=== PATIENT | female | born 1945 | race Caucasian/White ===

== ENCOUNTER 2018-11-14 08:58 | Day surgery (SDC) | payer MEDICARE, BC ==
[~2018-11-14 08:58] MED LIST: CEFAZOLIN 1 Gram 1 GM/50 ML BAG IVPB ONE; CEFAZOLIN 2 Gram 2 GM/50 ML BAG IVPB ONE
[2018-11-14] MEDS ORDERED: *PACU ONLY* KETAMINE HCL 10 MG/ML (20ML) VIAL IV ONE (08:59)
[2018-11-14] MEDS ORDERED: MORPHINE SULFATE 10MG/1ML **1ML VIAL IVP ONE (08:59)
[2018-11-14] MEDS ORDERED: METHYLPREDNISOLONE 40MG/VIAL IU ONE (08:59)
[2018-11-14] MEDS ORDERED: PROPOFOL 10 MG/ML VIAL IV ONE (08:59)
[2018-11-14] MEDS ORDERED: DEXAMETHASONE 4 MG/ML 1ML VIAL IVP ONE (08:59)
[2018-11-14] MEDS ORDERED: BUPIVACAINE 0.5% (5MG/ML) PF 30ML VIAL IVP ONE (08:59)
[2018-11-14] MEDS ORDERED: BUPIVACAINE LIPOSOME/PF 133MG/10ML VIAL IV ONE (08:59)
[2018-11-14] MEDS ORDERED: MIDAZOLAM HCL 2MG/2ML VIAL IV ONE (08:59)
[2018-11-14] MEDS ORDERED: HYDRALAZINE 20MG/ML VIAL IV ONE (08:59)
[2018-11-14] MEDS ORDERED: KETOROLAC 30 MG/ML VIAL IVP ONE (08:59)
[2018-11-14] MEDS ORDERED: GLYCOPYRROLATE 0.2 MG/ML ML IV ONE (08:59)
[2018-11-14] MEDS ORDERED: RINGERS SOLUTION,LACTATED 1,000 ML IV ONE ×2 (09:45→12:40)
[2018-11-14] MEDS ORDERED: BUPIVACAINE 0.5% W/EPI MPF 30 ML VIAL SQ ONE (11:47)
[2018-11-14] MEDS ORDERED: HYDRALAZINE 20MG/ML VIAL IV PRN ×2 (14:20→14:30)
--- NOTE | 2018-11-16 08:20 | Operative Note ---
DATE OF SURGERY: 11/14/2018 PREOPERATIVE DIAGNOSIS: Tear of the rotator cuff on the right. POSTOPERATIVE DIAGNOSES: 1. Massive tear of the rotator cuff on the right, chronic. 2. Complex glenohumeral labral tear from the 6 to 3-o'clock position. 3. Profound external impingement right shoulder. 4. Advanced arthrosis right distal clavicle. OPERATION: 1. Partial open repair of a chronically torn right rotator cuff tendon. 2. Right shoulder arthroscopy with interarticular debridement. 3. Right shoulder open acromioplasty, CA ligament resection, subacromial bursectomy. 4. Right shoulder distal clavicle resection. STAFF SURGEON: Socrates Sanchez MD ANESTHESIA: Interscalene block with sedation. PREPARATION: Chloraprep. INDIVIDUAL CONSIDERATIONS: None. CLINICAL DATA ASSISTANT: Mrs. Bree Mitchell PROCEDURE: The patient was taken to the operating room and had a successful induction of an interscalene block. She was then prepped and draped in the usual fashion after given IV sedation. Her examination under anesthesia showed no instability. The patient had a posterior portal identified for arthroscopy. Skin was again infiltrated with 0.5% Marcaine with epinephrine prior. An 18-gauge spinal needle was easily placed in the joint, and the joint was inflated with normal saline with a 60-mL syringe. A stab wound was made, and a blunt-tipped trocar for the scope was easily placed in the joint. The joint was inflated with normal saline. An anterior accessory portal was then made just inferior to the intact long head of the biceps tendon in a retrograde fashion with a Wissinger johnathan, and the joint was irrigated out. There was a partial tear of the long head, I would say about 1/3 of it was torn and frayed. The labrum from 6 to 3-o'clock was completely frayed, and this was debrided out with a shaver. Glenohumeral joint was okay. Some synovitis. Obviously a massive tear of the rotator cuff but the subscap was okay. A lot of synovitis in the inferior pouch which was debrided. After irrigation, portals were closed with josefa. The patient had an anterior approach to the subacromial space and distal clavicle. Skin was again infiltrated with 0.5% Marcaine with epinephrine prior. Sharp dissection carried down through skin and subcutaneous tissues. Small veins were coagulated with a Bovie. An anterior deltoid interval was developed. Care was taken not to split the deltoid more than about 4 cm distal to the anterior tip of the acromion to prevent injury to the axillary nerve. Once in the subacromial space, there was a large richey of fluid consistent with a tear. The deltoid was then taken subperiosteally off the anterior aspect of the acromion, over the top of the intact CA ligament, and off the anterior aspect of a fairly degenerated distal clavicle. CA ligament was resected with a Bovie. Distal clavicle which was markedly arthritic with huge spurs was resected with an oscillating saw taking about a centimeter. The patient had a huge downsloping acromial spur anteriorly. An anterior acromioplasty was performed taking about a little over a centimeter, most of this actually being spur and tapering towards posteromedially to include the spurs at the AC joint. A complete bursectomy was performed. The patient had a massive tear at the rotator cuff. Basically, supraspinatus, infraspinatus, and teres minor were completely ripped off. I was able to mobilize most of the supraspinatus and infraspinatus but I only got maybe 1/3 of the teres minor posteriorly. The rest of it was basically chewed away. I was able to bring most of it to the tuberosity, some with burring and some [id number] but still putting retention sutures in the other remaining tendon and bringing it down to the tuberosity to the remaining tendon through holes distally and then tying it down on the more distal aspect of the tuberosity through bone. There was a longitudinal rent between the teres minor and the infraspinatus which was long, and this was repaired with buried knot #1 Vicryl suture. I am going to guess I repaired about 70% of what was torn. I put the shoulder through a full range of motion to ensure no further impingement. After irrigation, the deltoid was reattached to the remaining acromion with multiple interrupted #2 Vicryl going directly through the bony acromion. The periosteal cuff of the distal clavicle and anterior deltoid interval were closed with a running #1 Vicryl. Subcu was closed with 2-0 plus Vicryl in layers and skin was closed with running 3-0 Stratafix. The patient received 15 mL of 0.5% Marcaine with epinephrine along with 10 mg of morphine injected into the subacromial space through a sterile 18-gauge needle. A sterile bulky compressive dressing and sling were applied. The patient tolerated the procedure well. Needle and sponge counts were correct. Estimated blood loss was about 100 mL. She was taken back to recovery in good condition. There were no complications. KATHERINE
== END 2018-11-14 15:00 | disposition home or self-care (01) ==
LOC: SUR 08:58
PROVIDERS: ATTEND Orthopaedic Surgery
DX: M75.121 Complete rotator cuff tear or rupture of right shoulder, not specified as traumatic (principal); S43.431A Superior glenoid labrum lesion of right shoulder, initial encounter; M75.41 Impingement syndrome of right shoulder; M19.011 Primary osteoarthritis, right shoulder; E78.00 Pure hypercholesterolemia, unspecified; E03.9 Hypothyroidism, unspecified; I10 Essential (primary) hypertension; M19.90 Unspecified osteoarthritis, unspecified site; Z98.61 Coronary angioplasty status
CPT/HCPCS: 76942; C9290; J1030; J1885; J2270; J7120